=== PATIENT | male | born 1940 | race Caucasian/White ===

== ENCOUNTER → 2017-03-28 | Outpatient (CLI) | payer MEDICARE ==
[~2017-03-28] MED LIST: /MOXI40TA OR; ACET65TA OR; AMLO5TAB2 PO; ASPI81TA11 PO; ASPI81TA83 PO; ASPI81TA85 PO; ATEN25TA PO; CIPR500T89 PO; COLA100C2 OR; COUM10TA PO; COUM2.5T11 PO; COUMADIN PO; FLAG500T PO; FULLMIS XX; FURO40TA2 PO; GLIM1TAB PO; IPRASOL4 IN; ISOSPOW PO; K-TA1TAB PO; KLOR1CAP2 PO; LASI40TA PO; LEVA500T PO; LEVO150T PO; LEVO150T7 PO; LISI10TA4 PO; LOVA20TA2 PO; MILKSUS OR; MUCINEX PO; MULT1TAB10 PO; PERC5TAB6 PO; PRAV40TA2 PO; PROA1AER IN; TYLE167L PO; VENTAER IN; WARF-23 PO; [UNRECOGNIZED DRUG - OTHER] PO; multivitamin OR
[2017-03-28 15:54] LABS: MEAN CORPUSCULAR HEMOGLOBIN 30.1 pg (27.0-33.0); MEAN CORPUSCULAR HGB CONC 33.4 g/dl (32.0-36.5); RED CELL DISTRIBUTION WIDTH 15.4 % (11.5-14.5)
[2017-03-28 16:40] LABS: ANION GAP 6 MEQ/L (8-16); BLOOD UREA NITROGEN 16 MG/DL (7-18); CARBON DIOXIDE LEVEL 33 MEQ/L (21-32); CHLORIDE LEVEL 100 MEQ/L (98-107); CREATININE FOR GFR 1.18 MG/DL (0.70-1.30); GLOMERULAR FILTRATION RATE > 60.0 (>42); GLUCOSE, FASTING 128 MG/DL (83-110); POTASSIUM SERUM 4.3 MEQ/L (3.5-5.1); SODIUM LEVEL 139 MEQ/L (136-145)
== END ==
LOC: M LAB 14:56
PROVIDERS: ATTEND Internal Medicine Cardiovascular Disease
DX: I50.9 Heart failure, unspecified (principal); I48.0 Paroxysmal atrial fibrillation; I10 Essential (primary) hypertension

== ENCOUNTER 2017-05-01 08:57 | Inpatient (IN) | payer MEDICARE ==
[~2017-05-01] VITALS: Ht 180.3 cm; Wt 95.2 kg
[~2017-05-01 08:57] MED LIST changes: +ASPI-101 PO; -ASPI81TA11 PO; +CIPR-249 PO; -CIPR500T89 PO; -COUM2.5T11 PO; +COUM2.5T17 PO; +LEVA1TAB2 PO; -LEVA500T PO; +PERC5TAB12 PO; -PERC5TAB6 PO; -PROA1AER IN; +PROAAER10 IN
[2017-05-01] MEDS ORDERED: TYLE500T78 PO (09:11)
[2017-05-01 09:56] LABS: ANION GAP 4 MEQ/L (8-16); BLOOD UREA NITROGEN 19 MG/DL (7-18); CALCIUM LEVEL 8.9 MG/DL (8.8-10.2); CARBON DIOXIDE LEVEL 34 MEQ/L (21-32); CHLORIDE LEVEL 97 MEQ/L (98-107); GLOMERULAR FILTRATION RATE 56.8 (>42); GLUCOSE, FASTING 221 MG/DL (83-110); POTASSIUM SERUM 3.9 MEQ/L (3.5-5.1); SODIUM LEVEL 135 MEQ/L (136-145)
--- NOTE | 2017-05-01 10:07 | REP ---
Clinical: Cough and dyspnea. Comparison: 09/01/2016. Findings: Mediastinum suggests stable cardiomegaly and prior sternotomy, pacemaker, CABG and valve replacement. The lung rosenberg demonstrate diffuse chronic interstitial and fibroatelectatic changes. Superimposed acute infiltrates cannot be excluded. No definite effusion. No obvious pneumothorax. Skeletal structures intact. Impression: Chronic stable changes. Cannot exclude superimposed infiltrates. Signed by Godfrey Singh MD 05/01/2017 09:58 A
[2017-05-01 10:08] LABS: BASO # 0.1 K/mm3 (0.0-0.2); BASO % 0.7 % (0.0-1.0); EOS # 0.1 K/mm3 (0.0-0.50); LARGE UNSTAINED CELL # 0.2 K/mm3 (0.0-0.4); LARGE UNSTAINED CELL % 1.3 % (0.0-4.0); LYMPH # 0.8 K/mm3 (1.5-4.5); LYMPH % 6.3 % (24.0-44.0); MEAN CORPUSCULAR HEMOGLOBIN 30.3 pg (27.0-33.0); MEAN CORPUSCULAR HGB CONC 32.8 g/dl (32.0-36.5); MEAN CORPUSCULAR VOLUME 92.3 fl (80.0-96.0); MONO # 0.8 K/mm3 (0.0-0.8); NEUTROPHILS # 10.6 K/mm3 (1.8-7.7); NEUTROPHILS % 84.8 % (36.0-66.0); PLATELET COUNT, AUTOMATED 540 k/mm3 (150-450); RED CELL DISTRIBUTION WIDTH 14.9 % (11.5-14.5); WHITE BLOOD COUNT 12.5 K/mm3 (4.0-10.0)
[2017-05-01 10:09] LABS: INR 2.47
[2017-05-01] MEDS ORDERED: ISOVUE-370 76% 100ML VIAL (Q9967) As Ordered ONE (10:31)
--- NOTE | 2017-05-01 11:26 | REP ---
Clinical: Dyspnea and cough. Rule out PE. Technique: Axial contrast enhanced images from the thoracic inlet to the upper abdomen using 100 ml Isovue 370 intravenous contrast material with multiplanar re-formations. Findings: No obvious pulmonary embolus is appreciated. Diffuse chronic interstitial changes are appreciated along with chronic bronchiectasis. Further chronic findings include partially calcified pleural plaques, subpleural fibrosis and pleural effusions (right greater than left) which may reflect prior asbestosis. Moderate mediastinal adenopathy is again noted and similar to prior examinations dating through 01/13/2016. Cardiomegaly and moderate pulmonary vascular congestion is appreciated along with scattered bilateral ground-glass infiltrates which are nonspecific in the setting of pulmonary vascular congestion and diffuse chronic changes, but may reflect multifocal pneumonia. Limited evaluation of the upper abdomen demonstrates cholelithiasis and normal bilateral adrenal glands. Surrounding musculoskeletal structures demonstrate degenerative changes without focal osseous abnormality. Impression: 1. No obvious pulmonary embolus. 2. Diffuse chronic interstitial changes, scattered subpleural fibrosis, and findings to suggest asbestosis as well as chronic mediastinal adenopathy all of which appears similar to 01/13/2016. 3. Cardiomegaly and superimposed pulmonary vascular congestion with small pleural effusions (right greater than left) and scattered bilateral ground-glass infiltrates noted. Signed by Godfrey Singh MD 05/01/2017 11:18 A
[2017-05-01] MEDS ORDERED: methylPREDNISolone INJ 125 MG/2 ML VIAL (J2930) IV ONE (11:30)
[2017-05-01] MEDS ORDERED: FUROSEMIDE 40 MG/4 ML VIAL (J1940) IV ONE (11:30)
[2017-05-01] MEDS: IPRATROPIUM 0.5MG/ALBUTEROL 2.5MG INH SOL UD 3ML (DUONEB)(J7620) NEB SCH ×4 (12:06→20:14)
[2017-05-01] MEDS ORDERED: COUM1TAB17 PO (13:09)
[2017-05-01] MEDS ORDERED: MUCI600T31 PO (13:10)
[2017-05-01] MEDS ORDERED: HEPARIN SOD (PORCINE) 5000 UNITS/ML VIAL SC SCH (14:00)
[2017-05-01] MEDS ORDERED: IPRATROPIUM 0.5MG/ALBUTEROL 2.5MG INH SOL UD 3ML (DUONEB)(J7620) NEB PRN (15:00)
[2017-05-01] MEDS ORDERED: DEXTROSE 50% 50 ML SYRINGE IV PRN (15:00)
[2017-05-01 16:30] VITALS: BP 142/76
[2017-05-01] MEDS: HumaLOG INSULIN (NovoLOG) PER UNIT SC SCH ×2 (17:46→21:19)
[2017-05-01 20:00] VITALS: BP 127/77
[2017-05-01] MEDS ORDERED: guaiFENesin ER 600 MG TAB PO PRN (20:30)
[2017-05-01] MEDS: PRAVASTATIN 20 MG TAB PO SCH (21:18)
[2017-05-01] MEDS: POTASSIUM CHLORIDE 10 MEQ SR TABLET PO SCH (21:18)
[2017-05-01] MEDS: FUROSEMIDE 40 MG/4 ML VIAL (J1940) IV SCH (21:20)
--- NOTE | 2017-05-01 22:16 | HPE ---
DATE OF ADMISSION: 05/01/2017 PRIMARY CARE DOCTOR: Edwardo Halie CHIEF COMPLAINT: Dyspnea. HISTORY OF THE PRESENT ILLNESS: The patient is a 76-year-old male. He does have a history of chronic obstructive pulmonary disease (COPD) and diastolic congestive heart failure (CHF). He is oxygen (O2) dependent, 2 liters. He presented with dyspnea, which started early in the morning. He had a sleep study last night, was unable to complete it because he could not fall asleep, so in the morning he was discharged home. He walked to his car and became short of breath, dropped his saturation to about 76. He sat in the car and settled and with his oxygen, his saturation came up to about [address]. At home, his symptoms continued. He became short of breath with every exertion and also could not maintain his saturations up, so he came to the emergency department (ED) to be evaluated. He was treated with Solu-Medrol and nebulizer treatment as well as oxygen in the emergency room (ER) and he did improve significantly. He was also given Lasix intravenously. He denies any fever, chills, cough, chest pain, palpitations or dizziness. Also denies nausea, vomiting, diarrhea. REVIEW OF SYSTEMS: Ten-point systems were assessed, all negative except as stated above in the history of the present illness. PAST MEDICAL HISTORY: His past medical history also includes non-insulin dependent diabetes, atrial fibrillation - on Coumadin, hypertension, dyslipidemia, hypothyroidism, coronary artery disease. PAST SURGICAL HISTORY: Includes total knee replacement. He has had AV arnoldo ablation with pacemaker placement, a partial thyroidectomy, approximately two-thirds of his thyroid was removed, coronary artery bypass graft (CABG), double bypass surgery, aortic valve replacement with a pig valve, which is bioprosthetic valve 2 or 3 years ago. He also had stents placed in his left LAD. FAMILY HISTORY: He has a brother who has a history of coronary artery disease, diabetes and hypertension. Dad at the age of 47 of unknown cause. Mother at 72, had congestive heart failure. SOCIAL HISTORY: The patient is an ex-smoker. He quit 15 years ago. Prior to that, did not smoke much, about a pack a day for 2 years. However, he worked in a [employer] for 40 years. He is , lives with his and has four children, of course, retired. ALLERGIES TO MEDICATION: PENICILLIN. Reaction: Blisters. MEDICATIONS: His list of home medications includes: - Lasix 40 mg twice a day - K-Deborah 10 mEq twice a day - warfarin 2.5 mg once a week and then warfarin 5 mg six times a week - amlodipine 5 mg once daily - baby aspirin - glimepiride 1 mg once a day - Mucinex 600 mg daily as needed for congestion - levothyroxine 150 mcg once a day - multivitamin adult daily - pravastatin 40 mg nightly PHYSICAL EXAMINATION: Vital Signs: Blood pressure 142/76, pulse 58, respiratory rate 20, oxygen saturation 93%, temperature 97.7 degrees Fahrenheit. General: He is alert, oriented to person, place, time, circumstance, comfortable, not in distress, pleasant. HEENT: Pupils equal, round and reactive to light. Extraocular muscles intact. Normocephalic, atraumatic. Anicteric sclerae. Mucous membranes moist. Cardiovascular system: S1, S2 present. Heart rate is paced. Respiratory system: There is bibasilar crackles. Gastrointestinal (GI): Abdomen is soft, nontender, nondistended. Bowel sounds are normal. Rectal exam: Deferred. Musculoskeletal system: No pedal edema, cyanosis or calf tenderness. Pulses are palpable in all extremities. Skin: Warm, dry, acyanotic without rash, petechiae or ecchymosis. Neurologic: Nonfocal findings. LABORATORY: Hematology: White blood cell count 12.5 thousand, hemoglobin 14, hematocrit 42, platelets 540. Chemistry: Sodium 135, potassium 3.9, chloride 97, bicarbonate 34, BUN 19, creatinine 1.30, fasting glucose 221, calcium 8.9, total CK 70, troponin I less than 0.02. BNP 150. TSH 1.6. Coagulopathy: INR 2.47. IMAGING STUDIES: Chest x-ray: Chronic stable changes, cannot exclude superimposed infiltrates. CTA: No obvious pulmonary emboli. Diffuse chronic interstitial changes, scattered subpleural fibrosis. Findings suggest asbestosis as well as chronic mediastinal adenopathy, which is similar to last CT scan. Cardiomegaly and superimposed pulmonary vascular congestion with small pleural effusion. ASSESSMENT: A 76-year-old male, history of chronic obstructive pulmonary disease, congestive heart failure, chronic lung fibrotic changes, developed dyspnea, hypoxia, had crackles at the bases of lung, treated with nebulizers, IV Lasix, Solu-Medrol with improvement. His last ejection fraction was 60% January of 2016. IMPRESSION AND PLAN: 1. Acute on chronic diastolic congestive heart failure. Will continue IV Lasix, potassium supplement and oxygen. Echocardiogram ordered. Please consider cardiology consult, pending results. 2. Chronic obstructive pulmonary disease, stable. Will continue nebulizer treatment, started on prednisone taper. 3. History of diabetes. Blood sugar will be monitored while in the hospital and covered with sliding scale insulin. Also resumed patient's glimepiride. 4. History of hypertension. Blood pressure controlled on amlodipine. 5. History of atrial fibrillation, on Coumadin. Patient has a pacemaker which controls his heart rate. He is on Coumadin with therapeutic INR of 2.4. 6. History of hypothyroidism. Continue Synthroid. 7. History of dyslipidemia. Continue pravastatin. 8. Deep vein thrombosis (DVT) prophylaxis with Coumadin. The patient is admitted to the progressive care unit. Oxygen to be continued and titrated to maintain saturations above 92%.
[2017-05-01 23:59] VITALS: BP 107/54
[2017-05-02] MEDS: IPRATROPIUM 0.5MG/ALBUTEROL 2.5MG INH SOL UD 3ML (DUONEB)(J7620) NEB SCH ×4 (01:09→20:14)
[2017-05-02 04:00] VITALS: BP 94/59
[2017-05-02 05:46] LABS: INR 2.65
[2017-05-02 05:48] LABS: MEAN CORPUSCULAR HEMOGLOBIN 30.5 pg (27.0-33.0); MEAN CORPUSCULAR HGB CONC 33.7 g/dl (32.0-36.5); MEAN CORPUSCULAR VOLUME 90.6 fl (80.0-96.0); RED CELL DISTRIBUTION WIDTH 15.1 % (11.5-14.5); WHITE BLOOD COUNT 15.2 K/mm3 (4.0-10.0)
[2017-05-02 07:14] LABS: ALBUMIN 3.3 GM/DL (3.2-5.2); ALBUMIN/GLOBULIN RATIO 0.79 (1.00-1.93); CALCIUM LEVEL 8.8 MG/DL (8.8-10.2); CREATININE FOR GFR 1.6 MG/DL (0.70-1.30); GLOMERULAR FILTRATION RATE 44.7 (>42); MAGNESIUM LEVEL 2.5 MG/DL (1.8-2.4); POTASSIUM SERUM 3.9 MEQ/L (3.5-5.1); TOTAL PROTEIN 7.5 GM/DL (6.4-8.2)
[2017-05-02] MEDS: LEVOTHYROXINE 150MCG TABLET (0.15MG) PO SCH (07:23)
--- NOTE | 2017-05-02 07:26 | ECGEPIP ---
Stationary ECG Study [facility] - ED Test Date: 2017-05-01 Pat Name: ROSEANNE BRIONES Department: Room: - Gender: M Reflector [employer] Deburrer: jasvir : 1940 Requested By: Jc Morelos Order Number: [id number] Reading MD: Cass Molina Measurements Intervals [place] Rate: 58 P: NV: 0 QRS: -64 QRSD: 170 T: 102 QT: 463 QTc: 457 Interpretive Statements ELECTRONIC VENTRICULAR PACEMAKER ABNORMAL RHYTHM ECG ATRIAL FIBRILLATION DECREASED RATE 09/02/16 Electronically Signed On 05-02-2017 7:26:29 EDT by Cass Molina
[2017-05-02] MEDS: guaiFENesin 200 MG TAB PO SCH ×2 (07:42→17:11)
[2017-05-02] MEDS: HumaLOG INSULIN (NovoLOG) PER UNIT SC SCH ×4 (07:42→20:57)
[2017-05-02 08:00] VITALS: BP 116/57
--- NOTE | 2017-05-02 08:21 | ED PDOC ---
Post-Departure Follow-Up radiology report faxed to Pino Haile Sarah MD May 02, 2017 08:21
[2017-05-02] MEDS: predniSONE 20 MG TAB PO SCH (08:54)
[2017-05-02] MEDS: amLODIPine 5 MG TAB PO SCH (08:54)
[2017-05-02] MEDS: GLIMEPIRIDE 1 MG TABLET PO SCH (08:54)
[2017-05-02] MEDS: MULTIVITAMINS/MINERALS THERAP 1 TAB PO SCH (08:55)
[2017-05-02] MEDS: ASPIRIN 81 MG ENTERIC TAB PO SCH (08:55)
[2017-05-02] MEDS: POTASSIUM CHLORIDE 10 MEQ SR TABLET PO SCH ×2 (08:55→20:54)
[2017-05-02] MEDS: FUROSEMIDE 40 MG/4 ML VIAL (J1940) IV SCH (08:55)
[2017-05-02] MEDS ORDERED: FUROSEMIDE 40 MG/4 ML VIAL (J1940) IV SCH (09:00)
[2017-05-02 12:00] VITALS: BP 129/60
--- NOTE | 2017-05-02 12:10 | IPNPDOC ---
Date Seen The patient was seen on 05/02/17. Progress Note SUBJECTIVE: Patient tells me that he feeling somewhat better today he is breathing much more easily he is comfortable he has no complaints OBJECTIVE PHYSICAL EXAMINATION: VITAL SIGNS: Please see below. GENERAL: Obese elderly man sitting up in bed in no distress HEENT:He has is moist mucous membranes there is mild elevation in his central venous pressure CARDIOVASCULAR: S1-S2 regular crescendo decrescendo systolic murmur. RESPIRATORY: Bibasilar Rales. ABDOMINAL: Obese bowel sounds present abdomen soft EXTREMITIES: Trace edema bilaterally LABORATORY DATA: Please see below. MICROBIOLOGY: Please see below. IMAGING: CT chest:1. No obvious pulmonary embolus. 2. Diffuse chronic interstitial changes, scattered subpleural fibrosis, and findings to suggest asbestosis as well as chronic mediastinal adenopathy all of which appears similar to 01/13/2016. 3. Cardiomegaly and superimposed pulmonary vascular congestion with small pleural effusions (right greater than left) and scattered bilateral ground-glass infiltrates noted. Echocardiogram: Ordered not yet completed. DVT prophylaxis ordered?: Therapeutic Coumadin ASSESSMENT AND PLAN: This is a 76-year-old man with decompensated diastolic congestive heart failure. PROBLEMS: 1. Decompensated diastolic congestive heart failure: Previously has had an echocardiogram completed which revealed preserved ejection fraction he does present congestive heart failure decompensated, responding to Lasix we'll continue with diuresis. We'll continue to monitor his renal function closely and slow as needed. We will order an echocardiogram to reassess his ejection fraction. 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 He is on supplemental potassium 2. COPD: Chronic respiratory failure hypoxic in nature the patient is normally on 2 L of continuous O2 he is at his baseline at this time I do not feel that his restaurant distress is secondary to decompensated COPD we will wean his steroids quickly continue with nebulizer treatments. No antibiotics indicated at this time. He is also on Robitussin 3. Type 2 diabetes: With insulin sliding scale. Ankle him apprised 4. Hypothyroidism: Continue levothyroxine 5. Dyslipidemia: Continue with pravastatin DISPOSITION: Await echocardiogram results continue with diuresing the patient likely discharged in next 24-48 hours. VS, I&O, 24H, Fishbone Vital Signs/I&O Vital Signs Date Time Temp Pulse Resp B/P (MAP) Pulse Ox O2 Delivery O2 Flow Rate FiO2 05/02/17 11:39 Nasal Cannula 2.0 05/02/17 08:54 58 116/57 05/02/17 08:00 98.5 18 96 I&O- Last 24 Hours up to 6 AM 05/02/17 06:00 Intake Total 0 ml Output Total 2200 ml Balance -2200 ml Laboratory Data 24H LABS Laboratory Tests 2 05/01/17 17:25: Bedside Glucose (Misc Panel) 234H 05/01/17 21:03: Bedside Glucose (Misc Panel) 358H 05/02/17 05:19: Prothrombin Time 28.3H, Prothromb Time International Ratio 2.65, Anion Gap 8, Glomerular Filtration Rate 44.7, Blood Urea Nitrogen 29#H, Creatinine 1.60H, Sodium Level 135L, Potassium Level 3.9, Chloride Level 96L, Carbon Dioxide Level 31, Calcium Level 8.8, Aspartate Amino Transf (AST/SGOT) 29, Alanine Aminotransferase (ALT/SGPT) 42, Alkaline Phosphatase 75, Total Bilirubin 1.0, Total Protein 7.5, Albumin 3.3, Magnesium Level 2.5H, Albumin/Globulin Ratio 0.79L 05/02/17 07:24: Bedside Glucose (Misc Panel) 244H 05/02/17 11:32: Bedside Glucose (Misc Panel) 316H CBC/BMP Laboratory Tests 05/02/17 05:19 Red Blood Count 4.15 L, Mean Corpuscular Volume 90.6, Mean Corpuscular Hemoglobin 30.5, Mean Corpuscular Hemoglobin Concent 33.7, Red Cell Distribution Width 15.1 H, Calcium Level 8.8, Aspartate Amino Transf (AST/SGOT) 29, Alanine Aminotransferase (ALT/SGPT) 42, Alkaline Phosphatase 75, Total Bilirubin 1.0, Total Protein 7.5, Albumin 3.3 Microbiology Microbiology 05/01/17 Blood Culture - Preliminary, Resulted No growth after 24 hours . All specim... 05/01/17 Blood Culture - Preliminary, Resulted No growth after 24 hours . All specim... BONNIE CORTEZ MD May 02, 2017 12:10
[2017-05-02] MEDS ORDERED: SLF 3 ML SYR IV PRN (15:30)
[2017-05-02 16:00] VITALS: BP 131/64
[2017-05-02] MEDS ORDERED: WARFARIN SOD 5 MG TAB PO SCH (17:00)
[2017-05-02] MEDS: WARFARIN SOD 5 MG TAB PO SCH (17:10)
[2017-05-02] MEDS: FUROSEMIDE 40 MG TAB PO SCH (17:11)
--- NOTE | 2017-05-02 19:49 | ECHO ---
DATE OF PROCEDURE: 05/02/2017 REFERRING PHYSICIAN: INDICATION: Dyspnea. HEIGHT: 180 cm WEIGHT: 94 kg DIMENSIONS: IVS: 1.3 LV: 4.2 LVPW: 1.3 LA: 4.2 Aorta: 3.5 Ascending aorta 3.7 FINDINGS: The study is of fair technical quality. Patient appears to be in sinus rhythm with ventricular pacing. Left ventricle is of normal size and hyperdynamic contractility. I estimate overall ejection fraction around 70%. There is septal wall motion abnormality likely related to pacemaker driven rhythm. Right ventricle is not enlarged and appears normally contractile. Both atria are at least mildly or moderately enlarged. There is an echo artifact in right sided heart chambers consistent with pacemaker or ICV leads. Aortic valve is bioprosthetic. It was poorly visualized and I can not comment on its anatomy. There are heavy degenerative abnormalities of mitral valve with very prominent mitral annular calcifications. Leaflet mobility seemed to be preserved. Tricuspid valve appears normal, pulmonic valve was not well seen. No pericardial effusion was noted. Inferior vena cava is dilated by does collapse with respiration indicative of likely mildly elevated central venous pressure. Aortic root appears grossly normal. Ascending aorta is borderline dilated measuring 3.7 cm. Aortic arch and abdominal aorta were not well seen. Doppler interrogation of aortic valve reveals peak gradient across the valve 20 and main gradient 11 mmHg. No insufficiency seen. There is mild mitral insufficiency and no significant mitral stenosis. There is mild to moderate tricuspid insuffiency. Calculated pulmonary artery pressure is at least in low to mid 50's corresponding to moderate and more likely moderately severe pulmonary hypertension. Mitral inflow pattern and tissue Doppler imaging of the mitral annulus reveal grade 2 diastolic dysfunction indicative of high left ventricular end diastolic pressure. CONCLUSIONS: 1. Study is of fair technical quality. 2. Normal left ventricle (LV) size with mild left ventricular hypertrophy (LVH) and hyperdynamic LV systolic function. Grade 2 diastolic dysfunction. Septal wall motion abnormality related to pacemaker driven rhythm. 3. Normally functioning bioprosthesis in aortic position. 4. Heavy degenerative abnormalities of mitral valve but resulting in only mild mitral insufficiency. 5. High central venous pressure. 6. At least moderate and more likely moderate to severe pulmonary hypertension. 7. Borderline dilated ascending aorta (3.7 cm). COMMENTS: Subacute bacterial endocarditis (SBE) prophylaxis is recommended. The study does support diagnosis of diastolic congestive heart failure. [facility]
[2017-05-02 20:00] VITALS: BP 123/60
[2017-05-02] MEDS: PRAVASTATIN 20 MG TAB PO SCH (20:54)
[2017-05-02] MEDS: SLF 3 ML SYR IV SCH (20:55)
[2017-05-02 23:59] VITALS: BP 126/65
[2017-05-03] MEDS: IPRATROPIUM 0.5MG/ALBUTEROL 2.5MG INH SOL UD 3ML (DUONEB)(J7620) NEB SCH ×4 (01:45→19:48)
[2017-05-03 04:00] VITALS: BP 110/58
[2017-05-03 05:30] LABS: MEAN CORPUSCULAR VOLUME 90.9 fl (80.0-96.0); RED CELL DISTRIBUTION WIDTH 15.3 % (11.5-14.5); WHITE BLOOD COUNT 16.8 K/mm3 (4.0-10.0)
[2017-05-03 05:39] LABS: INR 2.75
[2017-05-03 05:43] LABS: ALBUMIN 3.3 GM/DL (3.2-5.2); ALBUMIN/GLOBULIN RATIO 0.89 (1.00-1.93); BILIRUBIN,TOTAL 0.6 MG/DL (0.2-1.0); CALCIUM LEVEL 8.4 MG/DL (8.8-10.2); CREATININE FOR GFR 1.33 MG/DL (0.70-1.30); GLOMERULAR FILTRATION RATE 55.4 (>42); MAGNESIUM LEVEL 2.6 MG/DL (1.8-2.4)
[2017-05-03] MEDS: LEVOTHYROXINE 150MCG TABLET (0.15MG) PO SCH (06:29)
[2017-05-03] MEDS: SLF 3 ML SYR IV SCH ×3 (06:30→20:28)
[2017-05-03 08:00] VITALS: BP 132/74
[2017-05-03] MEDS: HumaLOG INSULIN (NovoLOG) PER UNIT SC SCH ×4 (08:46→20:28)
[2017-05-03] MEDS: amLODIPine 5 MG TAB PO SCH (08:47)
[2017-05-03] MEDS: ASPIRIN 81 MG ENTERIC TAB PO SCH (08:47)
[2017-05-03] MEDS: GLIMEPIRIDE 1 MG TABLET PO SCH (08:47)
[2017-05-03] MEDS: predniSONE 20 MG TAB PO SCH (08:47)
[2017-05-03] MEDS: FUROSEMIDE 40 MG TAB PO SCH (08:47)
[2017-05-03] MEDS: POTASSIUM CHLORIDE 10 MEQ SR TABLET PO SCH ×2 (08:48→20:29)
[2017-05-03] MEDS: MULTIVITAMINS/MINERALS THERAP 1 TAB PO SCH (08:48)
[2017-05-03] MEDS: guaiFENesin 200 MG TAB PO SCH ×2 (08:48→17:08)
--- NOTE | 2017-05-03 10:22 | IPNPDOC ---
Date Seen The patient was seen on 05/03/17. Progress Note SUBJECTIVE: Patient tells me that he feeling better, he is not back to his normal yet but he thinks as though he is approaching quickly. OBJECTIVE PHYSICAL EXAMINATION: VITAL SIGNS: Please see below. GENERAL: Obese elderly man sitting up in bed in no distress HEENT:He has is moist mucous membranes there is mild elevation in his central venous pressure CARDIOVASCULAR: S1-S2 regular crescendo decrescendo systolic murmur. RESPIRATORY: Bibasilar Rales. Rare ABDOMINAL: Obese bowel sounds present abdomen soft EXTREMITIES: Trace edema bilaterally LABORATORY DATA: Please see below. MICROBIOLOGY: Please see below. IMAGING: CT chest:1. No obvious pulmonary embolus. 2. Diffuse chronic interstitial changes, scattered subpleural fibrosis, and findings to suggest asbestosis as well as chronic mediastinal adenopathy all of which appears similar to 01/13/2016. 3. Cardiomegaly and superimposed pulmonary vascular congestion with small pleural effusions (right greater than left) and scattered bilateral ground-glass infiltrates noted. Echocardiogram: 1. Study is of fair technical quality. 2. Normal left ventricle (LV) size with mild left ventricular hypertrophy (LVH) and hyperdynamic LV systolic function. Grade 2 diastolic dysfunction. Septal wall motion abnormality related to pacemaker driven rhythm. 3. Normally functioning bioprosthesis in aortic position. 4. Heavy degenerative abnormalities of mitral valve but resulting in only mild mitral insufficiency. 5. High central venous pressure. 6. At least moderate and more likely moderate to severe pulmonary hypertension. 7. Borderline dilated ascending aorta (3.7 cm). DVT prophylaxis ordered?: Therapeutic Coumadin ASSESSMENT AND PLAN: This is a 76-year-old man with decompensated diastolic congestive heart failure. PROBLEMS: 1. Decompensated diastolic congestive heart failure: He has now had an echocardiogram completed which revealed preserved ejection fraction he does present with diastolic congestive heart failure decompensated, responding to Lasix we'll continue with diuresis. We'll continue to monitor his renal function closely it is improved today . Could consider changing his calcium channel abdirizak to an ARB will defer to his outpatient checker/stocker. He is on supplemental potassium 2. COPD: Chronic respiratory failure hypoxic in nature the patient is normally on 2 L of continuous O2 he is at his baseline at this time I do not feel that his shortness of breath is secondary to decompensated COPD we will wean his steroids quickly continue with nebulizer treatments. No antibiotics indicated at this time. He is also on Robitussin 3. Type 2 diabetes: Continue With insulin sliding scale. 4. Hypothyroidism: Continue levothyroxine 5. Dyslipidemia: Continue with pravastatin 6. Coronary artery disease: He is on aspirin and statin no beta abdirizak possibly related to his COPD 7. Atrial fibrillation: He is rate controlled without any significant medication he is anticoagulated with Coumadin DISPOSITION:the patient likely discharged in next 24-48 hours pending improvement. VS, I&O, 24H, Fishbone Vital Signs/I&O Vital Signs Date Time Temp Pulse Resp B/P (MAP) Pulse Ox O2 Delivery O2 Flow Rate FiO2 05/03/17 08:52 Nasal Cannula 2.0 05/03/17 08:47 60 132/74 05/03/17 08:00 97.9 20 100 I&O- Last 24 Hours up to 6 AM 05/03/17 06:00 Intake Total 2100 ml Output Total 1250 ml Balance 850 ml Laboratory Data 24H LABS Laboratory Tests 2 05/02/17 11:32: Bedside Glucose (Misc Panel) 316H 05/02/17 16:48: Bedside Glucose (Misc Panel) 291H 05/02/17 20:23: Bedside Glucose (Misc Panel) 248H 05/03/17 04:25: Prothrombin Time 30.3H, Prothromb Time International Ratio 2.75, Anion Gap 6L, Glomerular Filtration Rate 55.4, Blood Urea Nitrogen 37H, Creatinine 1.33H, Sodium Level 135L, Potassium Level 4.0, Chloride Level 97L, Carbon Dioxide Level 32, Calcium Level 8.4L, Aspartate Amino Transf (AST/SGOT) 34, Alanine Aminotransferase (ALT/SGPT) 47, Alkaline Phosphatase 66, Total Bilirubin 0.6, Total Protein 7.0, Albumin 3.3, Magnesium Level 2.6H, Albumin/Globulin Ratio 0.89L CBC/BMP Laboratory Tests 05/03/17 04:25 Red Blood Count 3.82 L, Mean Corpuscular Volume 90.9, Mean Corpuscular Hemoglobin 30.0, Mean Corpuscular Hemoglobin Concent 33.0, Red Cell Distribution Width 15.3 H, Calcium Level 8.4 L, Aspartate Amino Transf (AST/SGOT ) 34, Alanine Aminotransferase (ALT/SGPT) 47, Alkaline Phosphatase 66, Total Bilirubin 0.6, Total Protein 7.0, Albumin 3.3 Microbiology Microbiology 05/01/17 Blood Culture - Preliminary, Resulted No growth after 24 hours . All specim... 05/01/17 Blood Culture - Preliminary, Resulted No Growth after 48 hours. All Specime... BONNIE CORTEZ MD May 03, 2017 10:22
[2017-05-03] MEDS ORDERED: FUROSEMIDE 20 MG/2 ML VIAL (J1940) IV ONE (10:30)
[2017-05-03 12:00] VITALS: BP 130/70
[2017-05-03 16:00] VITALS: BP 136/64
[2017-05-03] MEDS: WARFARIN SOD 5 MG TAB PO SCH (17:08)
[2017-05-03] MEDS: FUROSEMIDE 20 MG TAB PO SCH (17:09)
[2017-05-03 20:00] VITALS: BP 162/82
[2017-05-03] MEDS: PRAVASTATIN 20 MG TAB PO SCH (20:28)
[2017-05-03 23:59] VITALS: BP 162/78
[2017-05-04 00:07] LABS: CALCIUM LEVEL 8.7 MG/DL (8.8-10.2); CREATININE FOR GFR 1.47 MG/DL (0.70-1.30); GLOMERULAR FILTRATION RATE 49.3 (>42); MAGNESIUM LEVEL 2.8 MG/DL (1.8-2.4)
[2017-05-04] MEDS: IPRATROPIUM 0.5MG/ALBUTEROL 2.5MG INH SOL UD 3ML (DUONEB)(J7620) NEB SCH ×2 (01:34→07:04)
[2017-05-04 04:00] VITALS: BP 136/59
[2017-05-04 05:55] LABS: INR 2.74
[2017-05-04 06:07] LABS: MEAN CORPUSCULAR HGB CONC 32.9 g/dl (32.0-36.5); RED CELL DISTRIBUTION WIDTH 15.1 % (11.5-14.5)
[2017-05-04] MEDS: LEVOTHYROXINE 150MCG TABLET (0.15MG) PO SCH (06:08)
[2017-05-04] MEDS: SLF 3 ML SYR IV SCH (06:08)
[2017-05-04 06:24] LABS: ALBUMIN 3.2 GM/DL (3.2-5.2); ALBUMIN/GLOBULIN RATIO 0.89 (1.00-1.93); ALKALINE PHOSPHATASE 66 U/L (45-117); ALT/SGPT 61 U/L (12-78); ANION GAP 5 MEQ/L (8-16); AST/SGOT 35 U/L (15-37); BILIRUBIN,TOTAL 0.6 MG/DL (0.2-1.0); BLOOD UREA NITROGEN 30 MG/DL (7-18); CARBON DIOXIDE LEVEL 32 MEQ/L (21-32); CHLORIDE LEVEL 100 MEQ/L (98-107); CREATININE FOR GFR 1.16 MG/DL (0.70-1.30); GLOMERULAR FILTRATION RATE > 60.0 (>42); GLUCOSE, FASTING 125 MG/DL (83-110); MAGNESIUM LEVEL 2.6 MG/DL (1.8-2.4); POTASSIUM SERUM 3.7 MEQ/L (3.5-5.1); SODIUM LEVEL 137 MEQ/L (136-145); TOTAL PROTEIN 6.8 GM/DL (6.4-8.2)
[2017-05-04 08:00] VITALS: BP 131/79
[2017-05-04] MEDS: MULTIVITAMINS/MINERALS THERAP 1 TAB PO SCH (08:28)
[2017-05-04] MEDS: guaiFENesin 200 MG TAB PO SCH (08:28)
[2017-05-04] MEDS: GLIMEPIRIDE 1 MG TABLET PO SCH (08:28)
[2017-05-04] MEDS: HumaLOG INSULIN (NovoLOG) PER UNIT SC SCH (08:28)
[2017-05-04] MEDS: predniSONE 20 MG TAB PO SCH (08:28)
[2017-05-04] MEDS: ASPIRIN 81 MG ENTERIC TAB PO SCH (08:28)
[2017-05-04 08:29] VITALS: BP 136/59
[2017-05-04] MEDS: amLODIPine 5 MG TAB PO SCH (08:29)
[2017-05-04] MEDS: FUROSEMIDE 20 MG TAB PO SCH (08:29)
[2017-05-04] MEDS: POTASSIUM CHLORIDE 10 MEQ SR TABLET PO SCH (08:29)
[2017-05-04] MEDS ORDERED: FURO20TA2 PO (08:47)
--- NOTE | 2017-05-04 15:56 | DSES ---
DATE OF ADMISSION: 05/01/2017 DATE OF DISCHARGE: 05/04/2017 DISCHARGE DIAGNOSIS: Decompensated diastolic congestive heart failure. SECONDARY DIAGNOSES: 1. Type two diabetes. 2. Chronic respiratory failure. 3. Chronic obstructive pulmonary disease (COPD). 4. Hypothyroidism. 5. Dyslipidemia. 6. Coronary artery disease. 7. Atrial fibrillation. HOSPITAL COURSE: The patient is a 76-year-old man who presented to the hospital with progressively worsening dyspnea on exertion, shortness of breath when lying flat. He was admitted to the telemetry floor and was found to be in decompensated diastolic congestive heart failure. He was diuresed with Lasix and had a quick and prompt improvement in his symptoms. He did admit to eating lots of salty crackers and salty potato chips. SUBJECTIVE: Today, the patient reports that he is feeling well. He has no complaints. His breathing is back at his baseline. OBJECTIVE: VITAL SIGNS: Temperature 97.8, pulse 59, respiratory rate 18, blood pressure 131/79. Oxygen saturation 96% on two liters. GENERAL: He is a very pleasant, elderly obese man sitting up on the edge of his bed. He is not in any acute distress. HEENT: Cranial nerves II through XII are grossly intact. He has moist mucous membranes. No appreciable elevation of central venous pressure (CVP). CARDIOVASCULAR: S1, S2. Irregularly irregular. He is not tachycardiac. RESPIRATORY: Exam is fairly clear. ABDOMEN: Grossly obese. Bowel sounds present. Abdomen is soft. EXTREMITIES: No clubbing, cyanosis and no edema appreciable. LABORATORY DATA: WBC 15.0, hemoglobin 11.6, platelet count 448. Chemistry panel: Sodium 137, potassium 3.7, chloride 100, bicarbonate 13, BUN 30, creatinine 1.1, INR of 2.7. MICROBIOLOGY: Blood cultures were negative. IMAGING: The patient did have CT angiography of his chest, which revealed cardiomegaly on superimposed pulmonary vascular congestion with small pleural effusions, right greater than left, and scattered bilateral ground-glass infiltrates. There was also noted to be no pulmonary embolism (PE), and diffuse chronic interstitial changes. Subpleural fibrosis and findings suggestive of asbestosis, which was similar to the previous scan of 2016. The patient also had an echocardiogram which revealed normal left ventricular size with mild ventricular hypertrophy, grade 2 diastolic dysfunction. Normal functioning bioprosthesis of aortic valve. Elevated central venous pressure. Moderate to severe pulmonary hypertension. ASSESSMENT AND PLAN: This is a 76-year-old man with resolving decompensated diastolic congestive heart failure. 1. Decompensated diastolic congestive heart failure. The patient is improved following diuresis. At this time, he will be discharged home on an increased dose of diuresis. He was previously taking 40 by mouth twice a day. We will increase it to 60 by mouth twice a day. I have reminded him to check his weight, and to stay away from salty foods, especially the crackers and potato chips he has been eating of late. Given his degree of diastolic dysfunction, he may benefit from switching his calcium channel abdirizak to an angiotensin receptor abdirizak. I will defer to the patient's head porter baggage. He will be continued on supplement potassium. 2. Chronic obstructive pulmonary disease (COPD), chronic hypoxic respiratory failure. He is continued on his baseline of two liters of continuous oxygen. I did not feel that his shortness of breath was related to any decompensation of his COPD, and he was briefly on steroids during his stay, and he was continued on his Robitussin and inhalers. 3. Type 2 diabetes. He was on sliding scale. 4. Hypothyroidism. He was continued on levothyroxine. 5. Dyslipidemia. He was continued on pravastatin. 6. Coronary artery disease. He was on an aspirin, statin, but no beta abdirizak, possibly related to his COPD. 7. Atrial fibrillation. He was rate controlled without any specific agents. He is anticoagulated with Coumadin. 8. Aortic valve replacement. He is anticoagulated with Coumadin. DISPOSITION: The patient is being discharged home to the care of his family. He is independent with his activities of daily living (ADLs). He is at his functional baseline. His clinical status is improved. He is to followup with his primary care provider (PCP) within seven days. Followup with his pacemaker appointment as scheduled May 12. Followup with his head porter baggage within two weeks. His activity is as prior to admission. His diet is 2 gram sodium consistent carbohydrate, and he is to avoid salty crackers and salty potato chips and check his weight daily, and return to the emergency room (ER) if his symptoms worsen. DISCHARGE MEDICATIONS: - Lasix 60 mg by mouth twice a day - Tylenol 1 gram as needed for pain or fever - Norvasc 5 mg daily - aspirin 81 mg daily - glimepiride 1 mg daily - Mucinex 600 mg daily - K-Chlor sprinkle 10 mEq twice a day - Synthroid 150 mcg daily - multivitamin one tablet daily - pravastatin 40 mg at bedtime - warfarin 5 mg six times a week and 2.5 mg on Tuesdays Greater than 30 minutes were spent organizing disposition.
== END 2017-05-04 10:46 | disposition home or self-care (01) | DRG 292 ==
LOC: EDBD 08:57 → EDSEX 08:57 → M ED 08:57 → M ED INP 14:57 → M PCU 16:25
PROVIDERS: ADMIT Hospitalist; ATTEND Internal Medicine
DX: I11.0 Hypertensive heart disease with heart failure (principal); J96.11 Chronic respiratory failure with hypoxia; I50.33 Acute on chronic diastolic (congestive) heart failure; J44.9 Chronic obstructive pulmonary disease, unspecified; E11.9 Type 2 diabetes mellitus without complications; E89.0 Postprocedural hypothyroidism; I48.91 Unspecified atrial fibrillation; I25.10 Atherosclerotic heart disease of native coronary artery without angina pectoris; E78.5 Hyperlipidemia, unspecified; Z79.01 Long term (current) use of anticoagulants; Z79.899 Other long term (current) drug therapy; Z79.82 Long term (current) use of aspirin; Z99.81 Dependence on supplemental oxygen; Z95.0 Presence of cardiac pacemaker; Z88.0 Allergy status to penicillin; Z87.891 Personal history of nicotine dependence

== ENCOUNTER → 2017-05-07 | Outpatient (CLI) | payer MEDICARE ==
[~2017-05-07] MED LIST changes: +COUM1TAB17 PO; +FURO20TA2 PO; +MUCI600T31 PO; +TYLE500T78 PO
[2017-05-07 13:10] LABS: BASO # 0.1 K/mm3 (0.0-0.2); BASO % 0.5 % (0.0-1.0); EOS # 0.4 K/mm3 (0.0-0.50); EOS % 3.1 % (0.0-3.0); LYMPH % 8.6 % (24.0-44.0); MEAN CORPUSCULAR HEMOGLOBIN 30.2 pg (27.0-33.0); MEAN CORPUSCULAR HGB CONC 32.9 g/dl (32.0-36.5); MEAN CORPUSCULAR VOLUME 91.9 fl (80.0-96.0); MONO % 8.6 % (0.0-5.0); NEUTROPHILS # 9.2 K/mm3 (1.8-7.7); NEUTROPHILS % 77.5 % (36.0-66.0); RED CELL DISTRIBUTION WIDTH 14.7 % (11.5-14.5); WHITE BLOOD COUNT 11.9 K/mm3 (4.0-10.0)
[2017-05-07 13:14] LABS: INR 2.13
[2017-05-07 14:08] LABS: ANION GAP 6 MEQ/L (8-16); BLOOD UREA NITROGEN 21 MG/DL (7-18); CALCIUM LEVEL 8.8 MG/DL (8.8-10.2); CARBON DIOXIDE LEVEL 38 MEQ/L (21-32); CHLORIDE LEVEL 95 MEQ/L (98-107); CREATININE FOR GFR 1.23 MG/DL (0.70-1.30); GLOMERULAR FILTRATION RATE > 60.0 (>42); GLUCOSE, FASTING 112 MG/DL (83-110); POTASSIUM SERUM 4.3 MEQ/L (3.5-5.1); SODIUM LEVEL 139 MEQ/L (136-145)
== END ==
LOC: M LAB 12:26
PROVIDERS: ATTEND Internal Medicine Cardiovascular Disease
DX: I48.4 Atypical atrial flutter (principal); I44.2 Atrioventricular block, complete; T82.111A Breakdown (mechanical) of cardiac pulse generator (battery), initial encounter

== ENCOUNTER 2017-11-17 12:17 | Emergency (ER) | payer MEDICARE ==
[2017-11-17] MEDS: MORPHINE 4 MG/ML 1ML SYRINGE IV (12:45)
[2017-11-17 13:20] LABS: BASO # 0.1 10^3/uL (0.0-0.2); BASO % 0.3 % (0.0-1.0); EOS # 0.1 10^3/uL (0.0-0.50); EOS % 0.6 % (0.0-3.0); HEMATOCRIT 39.9 % (42.0-52.0); HEMOGLOBIN 13.3 g/dl (14.0-18.0); IMMATURE GRANULOCYTE # 0.1 10^3/uL (0-0); IMMATURE GRANULOCYTE % 0.8 % (0-0); LYMPH # 0.8 10^3/uL (1.5-4.5); LYMPH % 4.4 % (24.0-44.0); MEAN CORPUSCULAR HEMOGLOBIN 29.4 pg (27.0-33.0); MEAN CORPUSCULAR HGB CONC 33.3 g/dl (32.0-36.5); MEAN CORPUSCULAR VOLUME 88.1 fl (80.0-96.0); MONO # 1.2 10^3/uL (0.0-0.8); MONO % 6.8 % (0.0-5.0); NEUTROPHILS % 87.1 % (36.0-66.0); PLATELET COUNT, AUTOMATED 415 10^3/uL (150-450); RED BLOOD COUNT 4.53 10^6/uL (4.30-6.10); RED CELL DISTRIBUTION WIDTH 14.4 % (11.5-14.5); WHITE BLOOD COUNT 17.2 10^3/uL (4.0-10.0)
[2017-11-17 13:27] LABS: KETONE, URINE AUTO RFX NEGATIVE (NEGATIVE); LEUKOCYTE ESTERASE UR AUTO RFX NEGATIVE (NEGATIVE); MUCUS, URINE RFX SMALL (NEGATIVE); NITRITE, URINE AUTO RFX NEGATIVE (NEGATIVE); RBC, URINE AUTO RFX 1 /HPF (0-3); SPECIFIC GRAVITY UR AUTO RFX 1.006 (1.002-1.035); SQUAM EPITHELIAL CELL UR AURFX 0 /HPF (0-6); WBC, URINE AUTO RFX 0 /HPF (0-3)
[2017-11-17] MEDS: FLEET OIL RETENTION ENEMA PR ×2 (13:30→14:20)
[2017-11-17 13:31] LABS: INR 2.11; PROTHROMBIN TIME 24.4 SECONDS (12.4-14.5)
[2017-11-17 13:39] LABS: ANION GAP 6 MEQ/L (8-16); BLOOD UREA NITROGEN 20 MG/DL (7-18); CALCIUM LEVEL 9.2 MG/DL (8.8-10.2); CARBON DIOXIDE LEVEL 34 MEQ/L (21-32); CHLORIDE LEVEL 96 MEQ/L (98-107); CREATININE FOR GFR 1.46 MG/DL (0.70-1.30); GLOMERULAR FILTRATION RATE 49.7 (>42); GLUCOSE, FASTING 171 MG/DL (83-110); POTASSIUM SERUM 3.3 MEQ/L (3.5-5.1); SODIUM LEVEL 136 MEQ/L (136-145)
[2017-11-17] MEDS: POTASSIUM CHLORIDE 10 MEQ SR TABLET PO (15:52)
== END 2017-11-17 17:35 | disposition home or self-care (01) ==
LOC: M ED 12:17
DX: K56.41 Fecal impaction (principal); E11.9 Type 2 diabetes mellitus without complications; I11.0 Hypertensive heart disease with heart failure; I50.9 Heart failure, unspecified; J44.9 Chronic obstructive pulmonary disease, unspecified; E78.5 Hyperlipidemia, unspecified; I25.10 Atherosclerotic heart disease of native coronary artery without angina pectoris; I48.91 Unspecified atrial fibrillation; E89.0 Postprocedural hypothyroidism; Z95.0 Presence of cardiac pacemaker; Z79.899 Other long term (current) drug therapy; Z79.82 Long term (current) use of aspirin; Z79.01 Long term (current) use of anticoagulants; Z79.890 Hormone replacement therapy; Z88.0 Allergy status to penicillin; Z87.891 Personal history of nicotine dependence
CPT/HCPCS: 74018

== ENCOUNTER → 2018-01-12 | Outpatient (CLI) | payer MEDICARE | LOC: M SMT 10:37 | DX: R06.02 Shortness of breath (principal) | CPT/HCPCS: 71046 ==

== ENCOUNTER 2018-08-06 11:38 | Day surgery (SDC) | payer MEDICARE ==
[~2018-08-06 11:38] MED LIST changes: -/MOXI40TA OR; -ACET65TA OR; -AMLO5TAB2 PO; -ASPI-101 PO; -ASPI81TA83 PO; -ASPI81TA85 PO; -ATEN25TA PO; +BALANCED SALT IRRIGATION SOLUTION 500ML BAG (FOR OR EYE MACHINE) As Ordered; -CIPR-249 PO; -COLA100C2 OR; -COUM10TA PO; -COUM1TAB17 PO; -COUM2.5T17 PO; -COUMADIN PO; +DUOVISC (0.50ML VISCOAT/0.55ML PROVISC) OPHTH KIT As Ordered; -FLAG500T PO; -FULLMIS XX; -FURO20TA2 PO; -FURO40TA2 PO; -GLIM1TAB PO; -IPRASOL4 IN; -ISOSPOW PO; -K-TA1TAB PO; -KLOR1CAP2 PO; -LASI40TA PO; -LEVA1TAB2 PO; -LEVO150T PO; -LEVO150T7 PO; +LIDOCAINE 0.75%/EPINEPHRINE 0.025% IN BSS 1ML SYR INTRACAMERAL (OR ONLY) As Ordered; -LISI10TA4 PO; -LOVA20TA2 PO; +MIDAZOLAM INJ 2 MG/2 ML VIAL (J2250) As Ordered; -MILKSUS OR; -MUCI600T31 PO; -MUCINEX PO; -MULT1TAB10 PO; -PERC5TAB12 PO; +POVIDONE-IODINE 5% OPHTH PREP SOL 30ML As Ordered; -PRAV40TA2 PO; -PROAAER10 IN; -TYLE167L PO; -TYLE500T78 PO; -VENTAER IN; -WARF-23 PO; -[UNRECOGNIZED DRUG - OTHER] PO; +fentaNYL 100 MCG/2 ML INJECTION (J3010) As Ordered; -multivitamin OR
[2018-08-06 13:04] LABS: BEDSIDE GLUCOSE 112 MG/DL (83-110)
[2018-08-06] MEDS: PROPARACAINE 0.5% OPHTH SOL 15ML OS (13:12)
[2018-08-06] MEDS: OFLOXACIN 0.3 % (OCUFLOX) OPTH SOL 5ML OS (13:12)
[2018-08-06] MEDS: PHENYLEPHRINE 2.5% OPHTH SOL 2ML OS (13:13)
[2018-08-06] MEDS: TROPICAMIDE 1% OPHTH SOLN 2ML OS (13:13)
[2018-08-06] MEDS ORDERED: ONDANSETRON 4MG/2ML VIAL (J2405) IV (15:00)
== END 2018-08-06 14:58 | disposition home or self-care (01) ==
LOC: M SDC 11:38
DX: H25.12 Age-related nuclear cataract, left eye (principal); H57.03 Miosis; I10 Essential (primary) hypertension; E11.9 Type 2 diabetes mellitus without complications; E78.5 Hyperlipidemia, unspecified; E03.9 Hypothyroidism, unspecified; I25.10 Atherosclerotic heart disease of native coronary artery without angina pectoris; M12.9 Arthropathy, unspecified; M54.2 Cervicalgia; R51 Headache; G47.9 Sleep disorder, unspecified; N40.0 Benign prostatic hyperplasia without lower urinary tract symptoms; R06.02 Shortness of breath; Z88.0 Allergy status to penicillin; Z79.899 Other long term (current) drug therapy; Z79.01 Long term (current) use of anticoagulants; Z95.0 Presence of cardiac pacemaker; Z95.5 Presence of coronary angioplasty implant and graft; Z96.652 Presence of left artificial knee joint; Z95.4 Presence of other heart-valve replacement
CPT/HCPCS: 66982

== ENCOUNTER 2018-08-20 08:00 | Day surgery (SDC) | payer MEDICARE ==
[~2018-08-20 08:00] MED LIST changes: -BALANCED SALT IRRIGATION SOLUTION 500ML BAG (FOR OR EYE MACHINE) As Ordered; -DUOVISC (0.50ML VISCOAT/0.55ML PROVISC) OPHTH KIT As Ordered; -LIDOCAINE 0.75%/EPINEPHRINE 0.025% IN BSS 1ML SYR INTRACAMERAL (OR ONLY) As Ordered; -POVIDONE-IODINE 5% OPHTH PREP SOL 30ML As Ordered
[2018-08-20 09:22] LABS: BEDSIDE GLUCOSE 111 MG/DL (83-110)
[2018-08-20] MEDS: OFLOXACIN 0.3 % (OCUFLOX) OPTH SOL 5ML OD (09:32)
[2018-08-20] MEDS: TROPICAMIDE 1% OPHTH SOLN 2ML OD (09:32)
[2018-08-20] MEDS: PHENYLEPHRINE 2.5% OPHTH SOL 2ML OD (09:32)
[2018-08-20] MEDS: PROPARACAINE 0.5% OPHTH SOL 15ML OD (09:32)
[2018-08-20] MEDS: BALANCED SALT IRRIGATION SOLUTION 500ML BAG (FOR OR EYE MACHINE) As Ordered (10:22)
[2018-08-20] MEDS: POVIDONE-IODINE 5% OPHTH PREP SOL 30ML As Ordered (10:22)
[2018-08-20] MEDS: DUOVISC (0.50ML VISCOAT/0.55ML PROVISC) OPHTH KIT As Ordered (10:22)
[2018-08-20] MEDS: LIDOCAINE 0.75%/EPINEPHRINE 0.025% IN BSS 1ML SYR INTRACAMERAL (OR ONLY) As Ordered (10:23)
[2018-08-20] MEDS: MOXIFLOXACIN IN BSS 0.25MG/0.25ML INTRACAMERAL INJ (OR EYE ONLY)(J2280) As Ordered (10:23)
== END 2018-08-20 11:10 | disposition home or self-care (01) ==
LOC: M SDC 08:00
DX: H25.11 Age-related nuclear cataract, right eye (principal); H21.561 Pupillary abnormality, right eye; I10 Essential (primary) hypertension; I25.10 Atherosclerotic heart disease of native coronary artery without angina pectoris; Z79.01 Long term (current) use of anticoagulants; I48.91 Unspecified atrial fibrillation; Z98.61 Coronary angioplasty status; Z79.82 Long term (current) use of aspirin; Z79.84 Long term (current) use of oral hypoglycemic drugs; E11.9 Type 2 diabetes mellitus without complications; Z95.0 Presence of cardiac pacemaker; E03.9 Hypothyroidism, unspecified; Z88.0 Allergy status to penicillin
CPT/HCPCS: 66982